=== PATIENT | male | born 1965 | race Caucasian/White ===

== ENCOUNTER 2024-10-18 09:11 | Emergency (ER) | payer OTHER, SELFPAY ==
[2024-10-18] VITALS (8 sets, daily range): BP systolic 123–144; BP diastolic 90–107; BMI 20.2
[2024-10-18 09:37] LABS: % Basophils 0.9 % (0-2); % Eosinophils 5.3 % (0-6); % Immature Granulocytes 0.2 % (0-0.5); % Lymphocytes 35.7 % (20.5-51.1); % Monocytes 7.4 % (1.7-9.3); % Neutrophils 50.5 % (42.2-75.2); Absolute Basophils 0.1 10^3/uL (0-0.2); Absolute Eosinophils 0.3 10^3/uL (0-0.7); Absolute Lymphocytes 2.1 10^3/uL (1.2-3.4); Absolute Monocytes 0.4 10^3/uL (0.1-0.6); Absolute Neutrophils 2.9 10^3/uL (1.4-6.5); Hematocrit 40.3 % (39.0-52.0); Hemoglobin 13.2 g/dL (13.0-18.0); Mean Corp Hgb Conc. 32.8 g/dL (33.0-37.0); Mean Corpuscular Hgb 30.8 pg (27.0-31.0); Mean Corpuscular Volume 93.9 fL (80.0-94.0); Mean Platelet Volume 9.9 fL (7.4-10.4); Nucleated Red Blood Cells % 0 % (-); Platelet Count 231 10^3/uL (130-400); Red Blood Cell Count 4.29 10^6/uL (4.70-6.10); Red Cell Dist. Width 14.7 % (11.5-14.5); White Blood Cell Count 5.8 10^3/uL (4.8-10.8)
[2024-10-18 09:52] LABS: ALT (SGPT) 14 U/L (0-50); AST (SGOT) 20 U/L (17-59); Alkaline Phosphatase 54 U/L (38-126); Blood Urea Nitrogen 24 mg/dl (9-20); Calcium 9.3 mg/dl (8.4-10.2); Carbon Dioxide 24 mmol/L (22-30); Chloride 106 mmol/L (98-107); Estimated Creatinine Clearance 63 ml/min; Glucose 94 mg/dl (70-99); Potassium 4.6 mmol/L (3.5-5.1); Sodium 136 mmol/L (135-145); Total Bilirubin 0.6 mg/dl (0.2-1.3); Total Protein 6.3 g/dl (6.3-8.2); eGFR > 60.00
--- NOTE | 2024-10-18 09:52 | ED.GENMED ---
History of Present Illness
General
Chief Complaint: Chest Pain
Source: patient
Exam Limitations: none
Time Seen by Provider: 10/18/24 09:34
Nursing documentation reviewed up to this point in time: agreed with
History of Present Illness
History of Present Illness:
59-year-old male with history of former heroin abuse on methadone since 2017, three quarters of a pack a day smoker, hep C, kidney stones presents for chest discomfort that started at about 8 AM this morning while he was at work. Patient was
standing and suddenly felt a severe discomfort in his chest like something punched him and then it spread throughout his chest. Now the pain is a 4 out of 10 worse with deep breathing. He does not feel short of breath at rest. But he has been
noticing over the last couple weeks that he has been feeling even little bit winded when he walks around. He has not had any workup for this. He has never seen a insulation blanket maker. He does not go to the family doctor very often. He has had a remote
endoscopy showing H. pylori and does have issues with eating, sometimes with eating regular meals he will end up getting epigastric pain and vomiting several times. He has had fluctuating weight loss, losing some and then gaining some back. This
all sounds very chronic but progressive. He has never had a chest discomfort like this but has had chest pains before and again has not been worked up for it. Because of the intensity of the pain today that is what brought him in. He had no
syncopal or near syncopal symptoms, nausea or vomiting, lightheadedness, sweatiness. He has never had a DVT or PE. He does have a chronic cough because he is a smoker. He smokes since age 11, he did receive his methadone today
Patient took 2 aspirin at the onset of the symptoms
Patient did recall that he was here in 2022 for chest discomfort and had a CT PE study that was negative but showed emphysema
Past History
Past History
ED Past Medical History: HTN and Other (Hep C, Kidney stones)
ED Past Surgical History: Other (History of kidney stone removal, and cyst removal from the stomach, Hernia repair)
Social History
Tobacco: Smoker
Alcohol: None
Drug: IVDA (heroin 1 bag/day)
Personal: Single
Living: alone
Employment: Not employed
Family History
Family History: Other
Review of Systems
Review of Systems
Allergies reviewed?: Yes
All Other Systems: Not applicable
Phy Exam
Physical Exam
Physical Exam:
GENERAL: Alert , in no apparent distress no distress
EYE: pupils equal and reactive
NECK: Supple
ENT: o/p clr, mmm.
CARDIAC: Bradycardic 50s, no murmur
LUNGS: Clear breath sounds bilaterally, no acute respiratory distress, no wheezes/rales/rhonchi
ABDOMEN: Soft, without focal tenderness, no r/g, no cvat, normal bowel sounds
NEUROLOGICAL: Alert and oriented, no focal neuro deficits
SKIN: Warm and dry, skin intact.
MUSCULOSKELETAL: No edema, well perfused. neg joseph's sign
PSYCH: Normal and appropriate interaction.
Course
Orders/Labs/Results
Orders:
Orders
10/18/24 09:11
Electrocardiogram (*1) Urgent
Reason for Study: Chest Pain
EKG- Treatment ONCE
10/18/24 09:27
Complete Blood Count/With Diff Urgent
Comprehensive Metabolic Panel Urgent
Lipase Urgent
Comment: ADD ON
Troponin I Urgent
10/18/24 09:43
Add On- LAB Urgent
Tests Added?: lipase
10/18/24 09:44
CR Chest - 2 Views Urgent
Comment:
Reason For Exam: chest pain
10/18/24 09:54
D-Dimer Urgent
NT-proBNP Urgent
10/18/24 12:47
Electrocardiogram (*1) Urgent
Reason for Study: Chest Pain
EKG- Treatment ONCE
10/18/24 13:04
Troponin I Urgent
10/18/24 13:06
Acetaminophen [Tylenol] 650 mg .ROUTE .STK-MED ONE
10/18/24 13:10
Acetaminophen [Tylenol] 650 mg PO NOW STA
Abnormal Lab Results
10/18/24
09:27
RBC 4.29 L 10^6/uL
(4.70-6.10)
MCHC 32.8 L g/dL
(33.0-37.0)
RDW 14.7 H %
(11.5-14.5)
BUN 24 H mg/dl
(9-20)
10/18/24 09:27
10/18/24 09:27
Vital Signs
Initial and Last Documented VS:
Initial Vital Signs
Temp Pulse Resp BP Pulse Ox
37.0 C 67 22 124/90 99
10/18/24 09:19 10/18/24 09:19 10/18/24 09:19 10/18/24 09:19 10/18/24 09:19
Last Documented Vital Signs
Temp Pulse Resp BP Pulse Ox
37.0 C 46 9 138/95 98
10/18/24 09:19 10/18/24 13:15 10/18/24 13:15 10/18/24 13:01 10/18/24 13:01
MDM/Problems Addressed
Differential Diagnosis Includes:
acs, pe, chest wall [pain, gerd
MDM/Problems Addressed:
59 y/o M
h/o smoking, htn
says he always has 'chest pains' but this was worse this am that felt like something punched him and has been still present snice
less intense than it was
had some SOB that resolved to his usual baseline sob
pt has never seen cards
he is well appearing
takes methadone and got his dose today already
ekg sinus sofia no ischemia
lungs clear, no murmur, noabdominal tendenrss, legs not swollen
1st trop and d harriet neg
cxr clear
d/w ed attending
pt felt strongly about being discharged
he was convinced to stay for 5 hour trop
2nd trop neg
ekg sinus sofia 40 s but comes up to 50s when up and about and
ED Attending Note
-
Portions of this chart may have been created with voice recognition software.� Occasional wrong word or��sound alike� substitutions may have occurred due to the inherent limitations of voice recognition software.
Discharge Plan
Departure
Patient Disposition: Home (Routine Discharge)
Date of Disposition: 10/18/24
Time of Disposition: 14:20
Discharge Problem:
Chest pain
Instructions: Chest Pain DCA Follow Up
Prescriptions:
No Action
methadone 40 mg Tablet,Soluble
83 mg PO DAILY
albuterol sulfate [ProAir HFA] 90 mcg/actuation HFA aerosol inhaler
1 puff inhalation Q4HPRN PRN (Reason: shortness of breath) Qty: 6.7 0RF
benzonatate 100 mg capsule
100 mg PO TID PRN (Reason: Cough) Qty: 14 0RF
Referrals:
NONE,* [Family Provider] -
Activity Restrictions/Additional Instructions:
YOUR CHEST PAIN IS PROBABLY CAUSED BY SOMETHING OTHER THAN YOUR HEART BUT YOU SHOULD BE HEARING FROM THE PICKING TABLE WORKER FOR FURTHER TESTING
WATCH YOUR DIET, CONTINUE YOUR MEDICATION
RETURN FOR ANY CONCERNS
Interventions
Interventions:
*Risk Screen - Suicide Last Done: 10/18/24 09:14
*General Assessment Last Done: 10/18/24 09:14
*Neglect/Abuse Screening Last Done: 10/18/24 09:14
ED- Fall Risk Assessment Last Done: 10/18/24 09:50
*ED COVID-19 Vaccine History Last Done: 10/18/24 09:14
*Nursing Disposition Last Done: 10/18/24 14:23
ED- Cardiac Assessment Last Done: 10/18/24 09:50
Discharge Date and Time
Discharge Date/Time: 10/18/24 14:24
Print Language: IRANIAN
[2024-10-18 10:01] LABS: Troponin I < 0.012 ng/ml
[2024-10-18 10:12] LABS: Lipase 49 U/L (23-300)
[2024-10-18 10:21] LABS: D-Dimer 0.38 ug/mlFEU (0.00-0.50)
[2024-10-18 10:45] LABS: NT-proBNP 435 pg/ml
--- NOTE | 2024-10-18 12:35 | EDRN ---
Pt wants to leave at this time. Pt informed about getting a 2nd troponin and its importance to r/o NV. Pt stated he still wishes to leave. This RN informed Veronica MADDEN who is seeing pt at this time then told pt that she said she will be in to see
and speak w/ him soon.
[2024-10-18] MEDS: TYLENOL 650 MG PO (13:10)
[2024-10-18 13:42] LABS: Troponin I < 0.012 ng/ml
--- NOTE | 2024-10-18 13:45 | EDRN ---
Pt standing on outside of room at curtain saying that he wants to leave.Troponin has been resulted but PA is in doing procedure on another pt. Pt was informed.
== END 2024-10-18 14:24 | disposition home or self-care (01) ==
LOC: EMR 09:11
PROVIDERS: Emergency Medicine; Physician Assistant; EMERGENCY PHYSICIAN Emergency Medicine
DX: R07.9 Chest pain, unspecified (principal); B19.20 Unspecified viral hepatitis C without hepatic coma; F17.210 Nicotine dependence, cigarettes, uncomplicated
CPT/HCPCS: 99285; 71046; 80053; 83690; 83880; 84484; 85025; 85379; 93005